=== PATIENT | female | born 1990 | race Caucasian/White ===

== ENCOUNTER 2024-06-28 20:01 | Emergency (ER) | payer OTHER ==
[2024-06-28] MEDS: Amoxicillin 500 MG Cap PO ONE (21:20)
[2024-06-28] MEDS: Take Home: Acetaminophen/HYDROcodone 325-5 MG, 5 Tab Pack PO ONE (21:20)
== END 2024-06-28 21:25 | disposition home or self-care (01) ==
LOC: VM.ED 20:01
DX: H60.312 Diffuse otitis externa, left ear (principal); F17.210 Nicotine dependence, cigarettes, uncomplicated; Z79.899 Other long term (current) drug therapy
CPT/HCPCS: 99283; A9270-GY